=== PATIENT | female | born 1995 | race African-American/Black ===

== ENCOUNTER 2018-08-26 17:08 | Emergency (ER) | payer SELFPAY ==
--- NOTE | 2018-08-26 17:47 | RAD REPORT ---
EXAM DESCRIPTION: RAD - Forearm Left - 08/26/2018 5:38 pm CLINICAL HISTORY: Left forearm pain status post injury FINDINGS: Intra-articular mildly to moderately displaced fracture involves the distal radius. Dedicmauro gates x-rays of the left wrist would be helpful for better evaluation
--- NOTE | 2018-08-26 17:47 | RAD REPORT ---
EXAM DESCRIPTION: Dylon Single View08/26/2018 5:38 pm CLINICAL HISTORY: Chest pain COMPARISON: none FINDINGS: The lungs appear clear of acute infiltrate. The heart is normal size IMPRESSION: No acute abnormalities displayed
[2018-08-26] MEDS ORDERED: MORPHINE 4 MG/ML SYR ONE ×2 (17:54→20:10)
[2018-08-26] MEDS ORDERED: ONDANSETRON 4 MG/2 ML VIAL ONE (17:54)
[2018-08-26 18:10] LABS: Absolute Lymphocytes (CBC) 1.6 K/uL (0.7-4.9); Absolute Monocytes 0.9 K/uL (0.1-1.3); Absolute Neutrophil 12.6 K/uL (1.8-8.0); Basophils % 0.5 % (0-1.3); Eosinophils % 1.1 % (0-4.4); Hematocrit 34.2 % (36.0-45.0); Lymphocytes % 10.6 % (15.3-44.8); MPV 9.2 fL (7.6-11.3); Monocytes % 5.6 % (3.3-12.3); RBC Red Blood Cell Count 3.66 M/uL (3.86-4.86)
[2018-08-26 18:35] LABS: BUN Blood Urea Nitrogen 8 mg/dL (7-18); Bicarbonate 22 mmol/L (21-32); Glucose Level 96 mg/dL (74-106); Potassium 3.7 mmol/L (3.5-5.1); Sodium Level 141 mmol/L (136-145)
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
--- NOTE | 2018-08-26 18:56 | RAD REPORT ---
EXAM DESCRIPTION: RAD - Wrist Left 3 View - 08/26/2018 6:38 pm CLINICAL HISTORY: Left wrist pain status post injury FINDINGS: A mildly displaced intra-articular distal radial fracture. Avulsion fracture ulnar styloid process No dislocation
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
== END 2018-08-26 21:30 | disposition short-term general hospital (02) ==
LOC: ER 17:08
PROC: 2W3DX1Z Immobilization of Left Lower Arm using Splint (ICD-10-PCS; principal; 2018-08-26)
DX: S22.20XA Unspecified fracture of sternum, initial encounter for closed fracture (principal); S52.572A Other intraarticular fracture of lower end of left radius, initial encounter for closed fracture; S27.892A Contusion of other specified intrathoracic organs, initial encounter; V43.62XA Car passenger injured in collision with other type car in traffic accident, initial encounter; Z88.0 Allergy status to penicillin
CPT/HCPCS: 36415; 70450; 71045; 71260; 72125; 74177; 80048; 85025; 86850; 86900; 86901; 96374; 96375; 99285; J2405; Q9967